=== PATIENT | female | born 1965 | race Two or more races ===

== ENCOUNTER 2020-08-12 13:19 | Emergency (ER) | payer OTHER ==
[~2020-08-12] VITALS: Ht 167.6 cm; Wt 60.3 kg
== END 2020-08-12 18:26 | disposition home or self-care (01) ==
LOC: ER 13:19
DX: S71.122A Laceration with foreign body, left thigh, initial encounter (principal); W05.1XXA Fall from non-moving nonmotorized scooter, initial encounter; Y93.89 Activity, other specified; Y92.89 Other specified places as the place of occurrence of the external cause; Y99.8 Other external cause status